=== PATIENT | male | born 1945 | race Caucasian/White ===

== ENCOUNTER 2024-04-16 20:22 | Observation (INO) ==
--- NOTE | 2024-04-16 20:58 | ED.PDOC ---
General ED Provider: Dr. 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 He noticed that fever first today. He took no medication for coming in. Is associate with chills he had some mild nausea earlier that has resolved he otherwise is asymptomatic. He has had no headache, neck pain, sore throat, runny nose, chest pain, shortness of breath, cough, productive sputum, hemoptysis, abdominal pain, vomiting, diarrhea, dysuria, hesitancy or urgency. Patient states he drinks a lot of water and does go to the bathroom frequently he called his doctor who told him to come into the emergency department. Procedure was performed by Dr. Ochoa at [facility] Time Seen by Provider: 04/16/24 20:41 Information Source: Patient Nursing and Triage Documentation Reviewed and Agree: Yes What is Opioid Naive?: *Opioid Naive implies the patient is not already taking opioids or not chronically receiving opioids on a daily basis. *PRN dosing is not "usually" associated with tolerance. *Patients are at higher risk of over-sedation and aspiration. What is Opioid Tolerant?: *Opioid Tolerance implies less than the expected response to an opioid. *Acquired tolerance is defined by the patient taking 60mg of oral morphine daily (or equianalgesic dose of another opioid) for 1 week or more. *Often associated with chronic pain. *May take more than usual dose to achieve desired pain control. Review of Systems Review Of Systems Constitutional: Reports Chills and Fever Ears, Nose, Mouth, Throat: Reports No symptoms; Denies Ear pain, Ear discharge or Throat pain Respiratory: Denies Cough or Shortness of Breath Cardiac: Denies Chest pain or Irregular heart rate GI: Denies Abdominal pain or Difficulty swallowing : Reports Frequency; Denies Burning, Dysuria or Discharge Musculoskeletal: Reports No symptoms; Denies Back pain or Joint pain Skin: Denies Bruising or Rash Neurological: Reports No symptoms [facility] Medical History (Updated 04/17/24 @ 02:47 by TORRI SPENCE RN) Hernia K46.9 - Unspecified abdominal hernia without obstruction or gangrene (ICD- 10) Depression F32.A - Depression, unspecified (ICD-10) Hypertension I10 - Essential (primary) hypertension (ICD-10) Cancer URETER, BLADDER, PROSTATE C80.1 - Malignant (primary) neoplasm, unspecified (ICD-10) Social History (Updated 04/17/24 @ 02:47 by TORRI SPENCE RN) Smoking and tobacco status: Never smoker Surgical History (Updated 04/17/24 @ 02:47 by TORRI SPENCE RN) History of nephrectomy, left Z90.5 - Acquired absence of kidney (ICD-10) Physical Exam Physical Exam Appearance: Reports Well-appearing Eyes: Reports JENNIFER, EOMI and Conjunctiva clear ENT: Reports Ears normal, Nose normal and Oropharynx normal Neck: Supple Respiratory: Reports Airway patent and Breath sounds clear; Denies Crackles, Rhonchi or Wheezes Cardiovascular: Reports RRR, Pulses normal, No rub, No murmur and Irregular rhythm GI/: Reports Soft and Nontender Musculoskeletal: Reports Normal strength and ROM intact Skin: Reports Warm Neurological: Reports Sensation intact and Motor intact Psychiatric: Reports Affect appropriate Interpretation EKG Interpretation EKG Interpretation By: ED Physician Time of EKG #1: 20:58 Rate: Normal Rhythm: Sinus Suther[place]: NL Interpretation: Right bundle branch block Course Course 04/16/24 21:06 04/16/24 21:06 Orders, Labs, Meds: Lab Review 04/16/24 04/16/24 21:06 23:45 WBC 23.79 H RBC 4.66 L Hgb 13.7 L Hct 42.6 MCV 91.4 MCH 29.4 MCHC 32.2 RDW Coeff of Ashley 12.9 Plt Count 180 Immature Gran % (Auto) 0.6 Neut % (Auto) 86.1 H Lymph % (Auto) 3.9 L Clayton % (Auto) 8.8 Eos % (Auto) 0.4 Baso % (Auto) 0.2 Neut # (Auto) 20.5 H Lymph # (Auto) 0.9 Clayton # (Auto) 2.1 H Eos # (Auto) 0.1 Baso # (Auto) 0.1 Immature Gran # (Auto) 0.2 Hypochromasia 1+ Anisocytosis 2+ Microcytosis 1+ Sodium 136.3 Potassium 4.34 Chloride 105.5 Carbon Dioxide 23.9 Anion Gap 11.24 BUN 33.8 H Creatinine 1.50 H Estimated GFR (MDRD) 45.00 BUN/Creatinine Ratio 22.53 Glucose 121.9 H Lactic Acid 1.63 Calcium 9.19 Total Bilirubin 0.54 AST 22.6 ALT 26.6 Alkaline Phosphatase 101.5 Total Protein 7.41 Albumin 4.23 Globulin 3.18 Albumin/Globulin Ratio 1.33 Lipase 96.6 Urine Color Yellow Urine Clarity Slightly Urine pH 7.5 Ur Specific Hart[place] 1.020 Urine Protein 1+ H Urine Glucose (UA) Negative Urine Ketones Negative Urine Blood 3+ H Urine Nitrite Negative Urine Bilirubin Negative Urine Urobilinogen 0.2 Ur Leukocyte Esterase Negative Urine Microscopic RBC 50-100 Ur Squamous Epith Cells Not Reportable Influ A Molecular Assay Negative by naat Influ B Molecular Assay Negative by naat SARS CoV-2 RNA Rapid SHARIFA Negative Orders Category Date Time Status OBSERVATION [PLACE PATIENT OBSERVATION] .TO MEDSURG ADMISSION 04/17/24 00:32 Active (MONITORED BED) EKG-(ED ONLY) Stat CARDIO 04/16/24 20:50 Ordered NPO REMINDER: IMAGING ONCE CARE 04/16/24 20:50 Active TELEMETRY MONITORING TELE CARE 04/16/24 23:28 Completed TELEMETRY MONITORING TELE CARE 04/17/24 00:32 Active VITAL SIGNS Q4HR CARE 04/16/24 23:32 Active VTE PREVENTION .SCD 24 Hours CARE 04/16/24 23:37 Active RENAL DIET DIETARY 04/17/24 Breakfast Ordered BLOOD CULTURE (ED ONLY) Stat LAB 04/16/24 21:51 Received BLOOD CULTURE Stat LAB 04/16/24 21:37 Received CBC W/ AUTO DIFF DAILY@0600 LAB 04/17/24 06:00 Ordered CBC W/ AUTO DIFF DAILY@0600 LAB 04/18/24 06:00 Ordered CBC W/ AUTO DIFF Stat LAB 04/16/24 21:06 Completed CMP [COMPREHENSIVE METABOLIC PANEL] DAILY@0600 LAB 04/17/24 06:00 Ordered CMP [COMPREHENSIVE METABOLIC PANEL] DAILY@0600 LAB 04/18/24 06:00 Ordered CMP [COMPREHENSIVE METABOLIC PANEL] Stat LAB 04/16/24 21:06 Completed COVID [SARS COV-2 RNA RAPID SHARIFA] Stat LAB 04/16/24 23:45 Completed FLU A & B MOLECULAR [FLU A/B MOLECULAR] Stat LAB 04/16/24 23:45 Completed LACTIC ACID Stat LAB 04/16/24 21:06 Completed LIPASE Stat LAB 04/16/24 21:06 Completed MAGNESIUM DAILY@0600 LAB 04/17/24 06:00 Ordered MAGNESIUM DAILY@0600 LAB 04/18/24 06:00 Ordered RBC MORPHOLOGY Stat LAB 04/16/24 21:06 Completed URINALYSIS C & S IF INDICATED Stat LAB 04/16/24 21:06 Completed URINE CULTURE Stat LAB 04/17/24 02:26 Received Acetaminophen [Tylenol] Meds 04/16/24 20:50 Discontinued 1,000 mg PO ONCE ONE Heparin Sodium,Porcine [Heparin] Meds 04/16/24 23:45 Active 5,000 units SUBCUT Q12HR Iodixanol [Visipaque 320 mg/ml 100Ml] Meds 04/16/24 22:21 Discontinued 100 ml IVP ONCE ONE Ondansetron HCl/Pf [Zofran 4 mg/2 ml] Meds 04/16/24 20:50 Discontinued 4 mg IVP ONCE ONE Piperacillin Sodium/Tazobactam [Zosyn 2.25 gm] 2.25 gm Meds 04/17/24 03:00 Active 0.9 % Sodium Chloride [Sodium Chloride 100Ml] 100 ml IV ONCE Piperacillin Sodium/Tazobactam [Zosyn 2.25 gm] 2.25 gm Meds 04/17/24 09:00 Active 0.9 % Sodium Chloride [Sodium Chloride 100Ml] 100 ml IV ONCE Piperacillin Sodium/Tazobactam [Zosyn 4.5 gm] 4.5 gm Meds 04/16/24 21:43 Discontinued 0.9 % Sodium Chloride [Sodium Chloride 100Ml] 100 ml IV ONCE Sodium Chloride 0.9% [Sodium Chloride] 1,000 ml Meds 04/16/24 21:29 Discontinued IV BOLUS Sodium Chloride 0.9% [Sodium Chloride] 1,000 ml Meds 04/16/24 23:45 Active IV Q10H RESUSCITATION STATUS Routine OTHERS 04/16/24 23:[address] ABDOMEN/PELVIS W CONTRAST Stat RADS 04/16/24 20:50 Completed CXR [CHEST, 2 VIEWS PA & LAT] Stat RADS 04/16/24 20:50 Completed Medications Generic Name Dose Route Start Last Admin Trade Name Freq PRN Reason Stop Dose Admin Heparin Sodium (Porcine) 5,000 units 04/16/24 23:45 04/17/24 02:26 Heparin Sodium,Porcine 5,000 Units/Ml Syringe SUBCUT Not Given Q12HR ARUNA Sodium Chloride 1,000 mls @ 100 mls/hr 04/16/24 23:45 04/17/24 02:07 Sodium Chloride IV 100 mls/hr Q10H ARUNA Administration Piperacillin Sod/Tazobactam 100 mls @ 200 mls/hr 04/17/24 03:00 04/17/24 02:04 Sod 2.25 gm/ Sodium Chloride IV 04/17/24 03:29 200 mls/hr ONCE ONE Administration Piperacillin Sod/Tazobactam 100 mls @ 200 mls/hr 04/17/24 09:00 Sod 2.25 gm/ Sodium Chloride IV 04/17/24 09:29 ONCE ONE Discontinued Medications Generic Name Dose Route Start Last Admin Trade Name Freq PRN Reason Stop Dose Admin Acetaminophen 1,000 mg 04/16/24 20:50 04/16/24 21:15 Acetaminophen 500 Mg Tablet PO 04/16/24 20:51 1,000 mg ONCE ONE Administration Sodium Chloride 1,000 mls @ 1,000 mls/hr 04/16/24 21:29 04/16/24 22:44 Sodium Chloride IV 04/16/24 22:28 Infused BOLUS ONE Infusion Piperacillin Sod/Tazobactam 100 mls @ 200 mls/hr 04/16/24 21:43 04/16/24 22:06 Sod 4.5 gm/ Sodium Chloride IV 04/16/24 22:12 200 mls/hr ONCE ONE Administration Iodixanol 100 ml 04/16/24 22:21 04/16/24 22:21 Iodixanol 320 Mg/Ml 100ml IVP 04/16/24 22:22 100 ml ONCE ONE Administration Ondansetron HCl 4 mg 04/16/24 20:50 04/17/24 00:56 Ondansetron Hcl/Pf 4 Mg/2 Ml Sdv IVP 04/16/24 20:51 Not Given ONCE ONE Vital Signs: Temp Pulse Resp BP Pulse Ox 04/16/24 20:28 100.6 F H 106 H 18 193/112 H 95 Discharge Plan Discharge Patient Disposition: PLACED OBSERVATION Discharge Problem: Fever Did you review [place] CHARGE AUTHORIZER for ALL controlled substances?: Not Applicable ED Provider: TANIKA VOGT Condition: Stable Physician Progress Note: 78-year-old male history of nephrectomy, status post prostate surgery that was done transurethrally at an outside hospital presenting to the emergency department fever x 1 day. He is not having any associated symptoms whatsoever. Other than nausea. exam was unremarkable no testicular tenderness, no discharge, no blood at the meatus, abdomen soft nontender. Higher suspicion for a UTI, patient has no clinical signs or symptoms consistent with pneumonia however will get screening chest x-ray, he does not have calf pain or tenderness, no hemoptysis does not seem consistent with DVT or PE nor does it seem consistent with that given the timeframe. Abscess is on the differential we will get CT scan to rule out post surgical infection. Will give antipyretics, reevaluate. Viral illness also on the differential. Other differential considered as well thought to be less likely at this point in time. Patient with significant leukocytosis of 23,000, Zosyn added as well as fluids, creatinine was elevated 1.5, with setting of history of nephrectomy and sepsis did feel antibiotics were prudent and lactic acid added on. There is still no clear source as his urine was negative chest x-ray was negative CT scan did not show anything obvious to cause a fever. Did discuss with [facility] who did not feel patient needed to be transferred. Discussed with hospitalist to admit to our facility for continued monitoring lab draws IV antibiotics and to follow- up cultures.
[2024-04-16] MEDS: ZOFRAN SDV IVP ONE (21:15)
[2024-04-16] MEDS: TYLENOL PO ONE (21:15)
[2024-04-16 21:24] LABS: BASOPHILS # (AUTO) 0.1 K/uL (0-0.2); BASOPHILS % (AUTO) 0.2 % (0.0-3.0); EOSINOPHILS # (AUTO) 0.1 K/ul (0.0-0.7); EOSINOPHILS % (AUTO) 0.4 % (0.0-7.0); HEMATOCRIT 42.6 % (42.0-52.0); HEMOGLOBIN 13.7 g/dl (14.0-18.0); IMMATURE GRANULOCYTE # (AUTO) 0.2 (0.0-1.0); IMMATURE GRANULOCYTE % (AUTO) 0.6 % (0.0-5.0); LYMPHOCYTES # (AUTO) 0.9 K/uL (0.60-3.4); LYMPHOCYTES % (AUTO) 3.9 (10.0-50.0); MEAN CORPUSCULAR HEMOGLOBIN 29.4 pg (27.0-31.0); MEAN CORPUSCULAR HGB CONC 32.2 (31.8-35.4); MEAN CORPUSCULAR VOLUME 91.4 fl (80.0-94.0); MONOCYTES # (AUTO) 2.1 K/uL (0.4-2.0); MONOCYTES % (AUTO) 8.8 (0-10); NEUTROPHILS # (AUTO) 20.5 K/ul (2.0-6.9); NEUTROPHILS % (AUTO) 86.1 % (42.2-75.2); PLATELET COUNT 180 10^3/uL (140-440); RDW COEFFICIENT OF VARIATION 12.9 % (11.6-14.8); RED BLOOD COUNT 4.66 10^6/ul (4.70-6.10); WHITE BLOOD COUNT 23.79 K/ul (4.2-10.2)
[2024-04-16 21:26] LABS: ALANINE AMINOTRANSFERASE 26.6 U/L (0-50); ALBUMIN 4.23 g/dL (3.5-5.0); ALKALINE PHOSPHATASE 101.5 U/L (56-119); ASPARTATE AMINO TRANSFERASE 22.6 U/L (17-59); BILIRUBIN,TOTAL 0.54 mg/dL (0.2-1.3); BLOOD UREA NITROGEN 33.8 mg/dL (9-20); CALCIUM 9.19 mg/dL (8.4-10.2); CARBON DIOXIDE 23.9 mmol/L (22-30.0); CHLORIDE 105.5 mmol/L (98-107); CREATININE 1.5 mg/dL (0.60-1.10); GLUCOSE 121.9 mg/dL (74-106); LIPASE 96.6 U/L (23-300); POTASSIUM 4.34 mmol/L (3.5-5.1); SODIUM 136.3 mmol/L (134.5-145); TOTAL PROTEIN 7.41 g/dL (6.3-8.2)
[2024-04-16 21:34] LABS: ANISOCYTOSIS 2+ (NOT PRESENT); HYPOCHROMASIA 1+ (NOT PRESENT); MICROCYTOSIS 1+ (NOT PRESENT)
[2024-04-16 21:35] LABS: BILIRUBIN,URINE Negative (NEGATIVE); CLARITY,URINE Slightly (CLEAR); COLOR,URINE Yellow (YELLOW); GLUCOSE, URINE (UA) Negative (NEGATIVE); KETONES,URINE Negative (NEGATIVE); LEUKOCYTE ESTERASE ,URINE Negative (NEGATIVE); NITRITE,URINE Negative (NEGATIVE); PH,URINE 7.5 (5-9); PROTEIN,URINE 1+ (NEGATIVE); URINE, BLOOD 3+ (NEGATIVE); UROBILINOGEN,URINE 0.2 (0.2)
[2024-04-16 21:42] LABS: URINE RBC, MICROSCOPIC 50-100 (0-2)
[2024-04-16] MEDS: SODIUM CHLORIDE 1,000 ML IV ONE (21:44)
[2024-04-16] MEDS: ROCEPHIN 1 GM VIAL IVP ONE (21:45)
[2024-04-16] MEDS: ZOSYN 4.5 GM 4.5 GM in SODIUM CHLORIDE 100ML 100 ML IV ONE (22:06)
[2024-04-16] MEDS: VISIPAQUE 320 MG/ML 100ML IVP ONE (22:21)
--- NOTE | 2024-04-16 22:44 | DI ---
EXAM: FRONTAL AND LATERAL VIEWS OF THE CHEST. HISTORY: Leg swelling. COMPARISON: Chest radiograph 06/03/2017. FINDINGS: Atherosclerotic calcifications of the aorta. Normal heart size. No acute consolidation. No pleural effusion or pneumothorax. No acute osseous abnormality. Degenerative changes of the spine and shoulders. IMPRESSION: No acute finding in the chest.
--- NOTE | 2024-04-16 22:59 | CT ---
EXAM: CT OF THE ABDOMEN AND PELVIS WITH CONTRAST TECHNIQUE: CT of the abdomen and pelvis was performed with contrast. Multiplanar reformats were perf ormed. HISTORY: Fever. Recent prostate and bladder surgery. COMPARISON: CT urogram 03/29/2024. FINDINGS: Imaged lower thorax: Calcified granuloma in the left lower lobe. Heavy coronary calcifications. Tra ce pericardial fluid. Liver: Unremarkable. Gallbladder/Bile Ducts: No biliary dilation. Cholelithiasis without acute cholecystitis. Spleen: Unremarkable. Pancreas: Unremarkable. Adrenals: Stable 3.7 cm right adrenal adenoma. Kidneys/Ureters: Status post left nephrectomy. Right kidney contains a few small cysts. No hydroneph rosis. Bowel/mesentery/peritoneum: No bowel obstruction. Normal appendix. No ascites or free air. Retroperitoneum/vessels: No aortic aneurysm. Multifocal atherosclerotic plaques. Pelvis: Small amount of gas in the urinary bladder. Mild thickening of the anterior urinary bladder wall. Fat-containing bilateral inguinal hernias. Prostate is mildly enlarged. Bones/body wall: Multilevel degenerative spondylosis. IMPRESSION: Small amount of gas in the urinary bladder probably related to recent procedure. Mild thickening of the urinary bladder wall anteriorly. Cholelithiasis without acute cholecystitis. Chronic and postsurgical findings as described above, similar to the previous exam. All CT scans are performed using dose optimization techniques as appropriate to the performed exam an d include at least one of the following: Automated exposure control, adjustment of the mA and/or kV according t o size, and the use of iterative reconstruction technique.
[2024-04-17 00:13] LABS: SARS COV-2 RNA RAPID NAAT NEGATIVE (NEGATIVE)
[2024-04-17 00:14] LABS: MOLECULAR FLU A NEGATIVE BY NAAT (NEGATIVE); MOLECULAR FLU B NEGATIVE BY NAAT (NEGATIVE)
[2024-04-17] MEDS: HEPARIN SUBCUT SCH (01:19)
[2024-04-17] MEDS: SODIUM CHLORIDE 1,000 ML IV SCH (01:21)
[2024-04-17 02:03] VITALS: BMI 29.7
[2024-04-17] MEDS: ZOSYN 2.25 GM 2.25 GM in SODIUM CHLORIDE 100ML 100 ML IV ONE ×2 (02:04→11:05)
[2024-04-17] MEDS ORDERED: ZOSYN 3.375 GM 3.375 GM in SODIUM CHLORIDE 100ML 100 ML IV ONE (03:00)
[2024-04-17 05:36] LABS: HEMATOCRIT 39.8 % (42.0-52.0); HEMOGLOBIN 12.6 g/dl (14.0-18.0); MEAN CORPUSCULAR HEMOGLOBIN 29.6 pg (27.0-31.0); MEAN CORPUSCULAR HGB CONC 31.7 (31.8-35.4); MEAN CORPUSCULAR VOLUME 93.6 fl (80.0-94.0); PLATELET COUNT 173 10^3/uL (140-440); RDW COEFFICIENT OF VARIATION 13.1 % (11.6-14.8); RED BLOOD COUNT 4.25 10^6/ul (4.70-6.10); WHITE BLOOD COUNT 19.04 K/ul (4.2-10.2)
[2024-04-17 05:54] LABS: ANISOCYTOSIS OCCASIONAL (NOT PRESENT)
[2024-04-17 05:57] LABS: ALANINE AMINOTRANSFERASE 24.3 U/L (0-50); ALBUMIN 3.55 g/dL (3.5-5.0); ALKALINE PHOSPHATASE 93.1 U/L (56-119); ASPARTATE AMINO TRANSFERASE 18.3 U/L (17-59); BILIRUBIN,TOTAL 0.58 mg/dL (0.2-1.3); CALCIUM 8.54 mg/dL (8.4-10.2); CARBON DIOXIDE 24.5 mmol/L (22-30.0); CHLORIDE 107.4 mmol/L (98-107); CREATININE 1.57 mg/dL (0.60-1.10); GLUCOSE 127.4 mg/dL (74-106); MAGNESIUM 2.47 mg/dL (1.6-2.3); POTASSIUM 4.01 mmol/L (3.5-5.1); SODIUM 139.2 mmol/L (134.5-145); TOTAL PROTEIN 6.41 g/dL (6.3-8.2)
[2024-04-17] MEDS ORDERED: NON-FORMULARY MEDICATION (Magnesium Oxide 500 mg capsule) PO SCH (10:45)
[2024-04-17] MEDS: AMLODIPINE BENAZEPRIL PO SCH (11:04)
[2024-04-17] MEDS: CELEXA PO SCH (11:10)
[2024-04-17] MEDS: NORVASC PO SCH (11:10)
[2024-04-17] MEDS: FLOMAX PO SCH (11:10)
[2024-04-17] MEDS: DESYREL PO PRN (11:10)
[2024-04-17] MEDS: ZOSYN 3.375 GM 3.375 GM in SODIUM CHLORIDE 100ML 100 ML IV SCH (11:10)
[2024-04-17] MEDS: LOTENSIN PO SCH (11:11)
--- NOTE | 2024-04-17 11:21 | PCM ---
Date of Service Date Seen by Provider: 04/17/24 Time Seen by Provider: 09:15 Admit Day/Time Admission Date: 04/17/24 Admission Time: 00:32 Reason for Admission Chief Complaint: FEVER AFTER OPERATION, POSS INFECTION Hospital Provider Hospital Provider[facility]INA [facility], [facility] History of Present Illness History of Present Illness: Patient is a 71 y/o male with a PMH of prostate, ureter and bladder cancer as well as left nephrectomy, who presented to the emergency department with complaints of fever and chills. Reports that had cystoscopy on 04/13/[address] Ochoa in [place] due to cancer of the bladder. States that was told to seek medical attention if developed fever. No abdominal pain, dysuria, difficulty urinating, hematuria, or nausea/vomiting. Denies headache, neck pain, cough, chest pain, shortness of breath or any other concerns. On evaluation in ER patient was found to have wbc of 23, urine and chest x-ray are unremarkable. CT abdominal and pelvis showed post surgical changes. Blood cultures were obtained. Per records ER provider spoke with [place] and was advised can keep patient here at [place]. Patient was treated with IV fluids and Zosyn. Patient admitted for observation and further management. Case Discussed With Case Discussed With: Patient's case was discussed with the ER Physicians, Dr. Sharma [facility] Medical History Hernia K46.9 - Unspecified abdominal hernia without obstruction or gangrene (ICD- 10) Depression F32.A - Depression, unspecified (ICD-10) Hypertension I10 - Essential (primary) hypertension (ICD-10) Cancer URETER, BLADDER, PROSTATE C80.1 - Malignant (primary) neoplasm, unspecified (ICD-10) Surgical History (Updated 04/17/24 @ 02:47 by TORRI SPENCE RN) History of nephrectomy, left Z90.5 - Acquired absence of kidney (ICD-10) Social History (Updated 04/17/24 @ 02:47 by TORRI SPENCE, SAM) Smoking and tobacco status: Never smoker Allergies Allergies Allergy/AdvReac Type Severity Reaction Status Date / Time No Known Allergies Allergy Unverified 04/16/24 20:37 Current Medications Home Medications Saccharomyces boulardii 250 mg capsule (Daily Probiotic (S. boulardii)) 250 mg PO BID 04/16/24 [History Confirmed 04/17/24 Last Taken 04/16/24] amlodipine 2.5 mg-benazepril 10 mg capsule 1 cap PO DAILY 04/16/24 [History Confirmed 04/17/24 Last Taken 04/16/24] cholecalciferol (vitamin D3) 75 mcg (3,000 unit) tablet 3,000 unit PO QDAY 04/16/24 [History Confirmed 04/16/24 Last Taken Unknown] citalopram 40 mg tablet 40 mg PO DAILY 04/16/24 [History Confirmed 04/17/24 Last Taken 04/16/24] magnesium oxide 500 mg capsule 500 mg PO DAILY 04/16/24 [History Confirmed 04/17/24 Last Taken 04/16/24] tamsulosin 0.4 mg capsule (Flomax) 0.4 mg PO BID 04/16/24 [History Confirmed 04/17/24 Last Taken 04/16/24] trazodone 100 mg tablet 50 mg PO BEDTIME PRN sleep 04/16/24 [History Confirmed 04/17/24 Last Taken 04/16/24] zinc gluconate 100 mg tablet 100 mg PO ONCE 04/16/24 [History Confirmed 04/16/24 Last Taken Unknown] vit C 250 mg-vit E 200 unit-zinc ox 12.5 wa-pnfdch-udqjnd-zeax capsule 1 cap PO DAILY 04/17/24 [History Confirmed 04/17/24 Last Taken 04/16/24] Home Amlodipine Besylate (Amlodipine Besylate 5 Mg Tablet) 2.5 mg PO DAILY [facility] Last Admin: 04/17/24 11:10 Dose: 2.5 mg Benazepril HCl (Benazepril Hcl 10 Mg Tablet) 10 mg PO DAILY [facility] Last Admin: 04/17/24 11:11 Dose: 10 mg Cholecalciferol (Cholecalciferol (Vitamin D3) 1,000 Unit (25 Mcg) Tablet) 3,000 unit PO DAILY [facility] Citalopram Hydrobromide (Citalopram Hydrobromide 20 Mg Tablet) 40 mg PO DAILY [facility] Last Admin: 04/17/24 11:10 Dose: 40 mg Heparin Sodium (Porcine) (Heparin Sodium,Porcine 5,000 Units/Ml Syringe) 5,000 units SUBCUT Q12HR [facility] Last Admin: 04/17/24 11:48 Dose: Not Given Sodium Chloride (Sodium Chloride) 1,000 mls @ 100 mls/hr IV Q10H [facility] Last Admin: 04/17/24 02:07 Dose: 100 mls/hr Piperacillin Sod/Tazobactam (Sod 3.375 gm/ Sodium Chloride) 100 mls @ 200 mls/hr IV Q6HR [facility] Stop: 04/20/24 11:59 Last Admin: 04/17/24 11:10 Dose: 200 mls/hr Magnesium Oxide (Magnesium Oxide 400 Mg Tablet) 400 mg PO DAILY [facility] Saccharomyces Boulardii (Saccharomyces Boulardii 250 Mg Capsule) 250 mg PO BID [facility] Tamsulosin HCl (Tamsulosin Hcl 0.4 Mg Cap.Er.24h) 0.4 mg PO BID [facility] Last Admin: 04/17/24 11:10 Dose: 0.4 mg Trazodone HCl (Trazodone Hcl 50 Mg Tablet) 50 mg PO BEDTIME PRN PRN Reason: sleep Zinc Sulfate (Zinc Sulfate 220 Mg Capsule) 220 mg PO DAILY [facility] Discontinued Medications Acetaminophen (Acetaminophen 500 Mg Tablet) 1,000 mg PO ONCE ONE Stop: 04/16/24 20:51 Last Admin: 04/16/24 21:15 Dose: 1,000 mg Sodium Chloride (Sodium Chloride) 1,000 mls @ 1,000 mls/hr IV BOLUS ONE Stop: 04/16/24 22:28 Last Infusion: 04/16/24 22:44 Dose: Infused Piperacillin Sod/Tazobactam (Sod 4.5 gm/ Sodium Chloride) 100 mls @ 200 mls/hr IV ONCE ONE Stop: 04/16/24 22:12 Last Admin: 04/16/24 22:06 Dose: 200 mls/hr Piperacillin Sod/Tazobactam (Sod 2.25 gm/ Sodium Chloride) 100 mls @ 200 mls/hr IV ONCE ONE Stop: 04/17/24 03:29 Last Admin: 04/17/24 02:04 Dose: 200 mls/hr Piperacillin Sod/Tazobactam (Sod 2.25 gm/ Sodium Chloride) 100 mls @ 200 mls/hr IV ONCE ONE Stop: 04/17/24 09:29 Last Admin: 04/17/24 11:05 Dose: Not Given Iodixanol (Iodixanol 320 Mg/Ml 100ml) 100 ml IVP ONCE ONE Stop: 04/16/24 22:22 Last Admin: 04/16/24 22:21 Dose: 100 ml Non-Formulary Medication (Amlodipine-Benazepril) 1 cap PO DAILY [facility] Last Admin: 04/17/24 11:04 Dose: Not Given Ondansetron HCl (Ondansetron Hcl/Pf 4 Mg/2 Ml Sdv) 4 mg IVP ONCE ONE Stop: 04/16/24 20:51 Last Admin: 04/17/24 00:56 Dose: Not Given Zinc Sulfate (Zinc Sulfate 220 Mg Capsule) 440 mg PO DAILY [facility] Opioid Naive vs. Tolerant What is Opioid Naive?: *Opioid Naive implies the patient is not already taking opioids or not chronically receiving opioids on a daily basis. *PRN dosing is not "usually" associated with tolerance. *Patients are at higher risk of over-sedation and aspiration. What is Opioid Tolerant?: *Opioid Tolerance implies less than the expected response to an opioid. *Acquired tolerance is defined by the patient taking 60mg of oral morphine daily (or equianalgesic dose of another opioid) for 1 week or more. *Often associated with chronic pain. *May take more than usual dose to achieve desired pain control. Review of Systems Constitutional: Reports Chills Head: Reports Normocephalic and Atraumatic Eyes: Denies Vision Changes Ears: Reports No symptoms Nose: Reports No symptoms Mouth: Reports No symptoms Throat: Reports No symptoms Cardiovascular: Denies Chest pain or Palpitations Respiratory: Denies Cough or Shortness of air Gastrointestinal: Denies Nausea, Vomiting, Diarrhea or Abdominal pain Genitourinary: Denies Dysuria, Hematuria, Incontinent Bladder, Flank Pain, Penile Discharge, Testicular Pain or Testicular Swelling Musculoskeletal: Denies Neck Pain or Back Pain Dermatologic: Denies Skin Changes Endocrine: Denies No symptoms Hematology: Denies No symptoms Immunology: Denies Frequent infections Neurological: Denies No symptoms Psychiatric: Denies Depression or Suicidal Physical examination Most Recent Vital Signs: Most Recent Vital Signs Temperature 97.1 F L 04/17/24 05:21 Temperature Source Temporal Artery Scan 04/17/24 05:21 Temperature Source Infrared 04/17/24 01:20 Pulse Rate 65 04/17/24 05:21 Respiratory Rate 18 04/17/24 05:21 Blood Pressure 149/76 H 04/17/24 05:21 Blood Pressure Mean 100 04/17/24 05:21 Blood Pressure Left Arm 137/71 04/17/24 01:47 Blood Pressure Location Left Arm 04/17/24 05:21 Blood Pressure Position Supine 04/17/24 05:21 O2 Sat by Pulse Oximetry 98 04/17/24 05:21 Oxygen Delivery Method Room Air 04/17/24 10:00 Height 5 ft 10 in 04/17/24 01:47 Weight 93.9 kg 04/17/24 01:47 Telemetry Type Remote Telemetry 04/17/24 01:54 Telemetry Monitoring Started 04/17/24 01:54 Telemetry Heart Rate 76 04/17/24 01:54 EKG KS Interval 0.20 04/17/24 01:54 EKG QRS Interval 0.09 04/17/24 01:54 Telemetry Strip Reading SINUS RHYTHM 04/17/24 01:54 Appearance: Positive Well-appearing, Well-nourished, No Apparent Distress and Alert and Oriented x3 Skin: Positive Warm and Good Turgor HEENT: Positive Normocephalic and Atraumatic Neck: Positive Supple and Midline Trachea Chest/Lungs: Positive Symmetrical With Equal Breath Sounds and Clear to Au scultation Bilaterally Heart: Positive RRR GI/: Positive Soft, Nontender, Bowel Sounds Normal and No Distention; Negative Tender or Mass Extremities: Positive Intact Peripheral Pulses; Negative Cyanosis or Edema Neurological: Positive Sensation Intact, Motor intact, Cranial Nerves Intact, Alert, Oriented and Muscle Strength 5/5 in Upper and Lower Extremities Bilaterally; Negative Focal Deficit Psychiatric: Positive Oriented x4, Appropriate Mood and Appropriate Affect Labs This Visit Labs This Visit: Labs This Visit 04/16/24 04/16/24 04/17/24 21:06 23:45 05:15 WBC 23.79 H 19.04 H RBC 4.66 L 4.25 L Hgb 13.7 L 12.6 L Hct 42.6 39.8 L MCV 91.4 93.6 MCH 29.4 29.6 MCHC 32.2 31.7 L RDW Coeff of Ashley 12.9 13.1 Plt Count 180 173 Immature Gran % (Auto) 0.6 Neut % (Auto) 86.1 H Lymph % (Auto) 3.9 L [place] % (Auto) 8.8 Eos % (Auto) 0.4 Baso % (Auto) 0.2 Neut # (Auto) 20.5 H Lymph # (Auto) 0.9 [place] # (Auto) 2.1 H Eos # (Auto) 0.1 Baso # (Auto) 0.1 Immature Gran # (Auto) 0.2 Neutrophils % (Manual) 76.0 H Band Neutrophils % 1.0 Lymphocytes % (Manual) 10.0 Monocytes % (Manual) 13.0 H Hypochromasia 1+ Anisocytosis 2+ Occasional Microcytosis 1+ Sodium 136.3 139.2 Potassium 4.34 4.01 Chloride 105.5 107.4 H Carbon Dioxide 23.9 24.5 Anion Gap 11.24 11.31 BUN 33.8 H 28.0 H Creatinine 1.50 H 1.57 H Estimated GFR (MDRD) 45.00 43.00 BUN/Creatinine Ratio 22.53 17.83 Glucose 121.9 H 127.4 H Lactic Acid 1.63 Calcium 9.19 8.54 Magnesium 2.47 H Total Bilirubin 0.54 0.58 AST 22.6 18.3 ALT 26.6 24.3 Alkaline Phosphatase 101.5 93.1 Total Protein 7.41 6.41 Albumin 4.23 3.55 Globulin 3.18 2.86 Albumin/Globulin Ratio 1.33 1.24 Lipase 96.6 Urine Color Yellow Urine Clarity Slightly Urine pH 7.[address] 1.020 Urine Protein 1+ H Urine Glucose (UA) Negative Urine Ketones Negative Urine Blood 3+ H Urine Nitrite Negative Urine Bilirubin Negative Urine Urobilinogen 0.2 Ur Leukocyte Esterase Negative Urine Microscopic RBC 50-100 Ur Squamous Epith Cells Not Reportable Influ A Molecular Assay Negative by naat Influ B Molecular Assay Negative by naat SARS CoV-2 RNA Rapid SHARIFA Negative Microbiology This Visit 04/17/24 02:26 Urine,Clean Catch Urine Culture - Preliminary Review Statement Review Statement: I have independently reviewed and interpreted the labs/EKGs/imaging that were ordered by the ER provider. I have reviewed all outside records that are available currently in our EMR including imaging/notes/labs from previous visits. Assessment (1) Fever: Status: Acute Code(s): R50.9 - Fever, unspecified SNOMED Code(s): 347609874 (2) Sepsis: Status: Acute Code(s): A41.9 - Sepsis, unspecified organism SNOMED Code(s): 46991905 (3) Elevated serum creatinine: Status: Acute Code(s): R79.89 - Other specified abnormal findings of blood chemistry SNOMED Code(s): 362274396 (4) Cancer: Code(s): C80.1 - Malignant (primary) neoplasm, unspecified SNOMED Code(s): 043450037 (5) Hypertension: Code(s): I10 - Essential (primary) hypertension SNOMED Code(s): 38227887 Plan Plan: 1. Sepsis - unspecified, rule out, , temp 100.6, HR 106 on admission - no obvious source, cystoscopy due to bladder cancer on 04/13, urine and CXR negative, CT abd/pelvis unremarkable - continue IV Zosyn, follow blood and urine cx - continue IVF - telemetry, monitor - repeat labs in am 2. elevated creatnine - unknown baseline with history of left nephrectomy - continue IV hydration, monitor I/O and renal function. - avoid nephrotoxin and hypotension when possible 3. history of bladder, ureter and prostate cancer - follows with Dr. Ochoa in [facility], cystoscopy on 04/13 due to bladder cancer - not currently on chemo per 4. Hypertension, chronic - resume home norvasc - monitor 5. Depression - - resume home citalopram DVT Prophylaxis: Heparin Time Spent: Greater than 80 minutes spent with patient, 50% of the time spent with this patient was devoted to counseling and coordination of care. Advanced Care Planning: [5] minutes spent discussing advance care planning. Smoking Cessation: 3-10 minutes spent discussing smoking cessation. Disposition: discharge home when medically stable Admit to: Med Surg, observation Discussed Plan of Care with Dr. Taylor Medications Medication Orders: Medications Ordered Category Date Time Status Amlodipine Besylate [Norvasc] Meds 04/17/24 11:00 Active 2.5 mg PO DAILY Benazepril HCl [Lotensin] Meds 04/17/24 11:00 Active 10 mg PO DAILY Cholecalciferol (Vitamin D3) [Vitamin D] Meds 04/18/24 09:00 Active 3,000 unit PO DAILY Citalopram Hydrobromide [Celexa] Meds 04/17/24 11:00 Active 40 mg PO DAILY Heparin Sodium,Porcine [Heparin] Meds 04/16/24 23:45 Active 5,000 units SUBCUT Q12HR Magnesium Oxide [Mag-Ox] Meds 04/18/24 09:00 Active 400 mg PO DAILY Piperacillin Sodium/Tazobactam [Zosyn 3.375 gm] 3.375 Meds 04/17/24 12:00 Active gm 0.9 % Sodium Chloride [Sodium Chloride 100Ml] 100 ml IV Q6HR Saccharomyces Boulardii [Florastor] Meds 04/17/24 21:00 Active 250 mg PO BID Sodium Chloride 0.9% [Sodium Chloride] 1,000 ml Meds 04/16/24 23:45 Active IV Q10H Tamsulosin HCl [Flomax] Meds 04/17/24 11:00 Active 0.4 mg PO BID Trazodone HCl [Desyrel] Meds 04/17/24 10:39 Active 50 mg PO BEDTIME PRN zinc gluconate Meds 04/17/24 10:45 Ordered 100 mg PO ONCE
[2024-04-17] MEDS ORDERED: ZINC-220 PO SCH (12:00)
[2024-04-17] MEDS: FLORASTOR PO SCH (20:06)
[2024-04-17] MEDS: NORVASC PO ONE (21:03)
[2024-04-18 05:18] LABS: BASOPHILS % (AUTO) 0.2 % (0.0-3.0); EOSINOPHILS # (AUTO) 0.2 K/ul (0.0-0.7); EOSINOPHILS % (AUTO) 1.3 % (0.0-7.0); HEMOGLOBIN 13.3 g/dl (14.0-18.0); IMMATURE GRANULOCYTE # (AUTO) 0.1 (0.0-1.0); IMMATURE GRANULOCYTE % (AUTO) 0.5 % (0.0-5.0); LYMPHOCYTES # (AUTO) 1.1 K/uL (0.60-3.4); MEAN CORPUSCULAR HEMOGLOBIN 29.6 pg (27.0-31.0); MEAN CORPUSCULAR HGB CONC 31.7 (31.8-35.4); MEAN CORPUSCULAR VOLUME 93.5 fl (80.0-94.0); MONOCYTES # (AUTO) 1.4 K/uL (0.4-2.0); MONOCYTES % (AUTO) 10.1 (0-10); NEUTROPHILS # (AUTO) 11.4 K/ul (2.0-6.9); NEUTROPHILS % (AUTO) 79.9 % (42.2-75.2); PLATELET COUNT 161 10^3/uL (140-440); RDW COEFFICIENT OF VARIATION 13.2 % (11.6-14.8); RED BLOOD COUNT 4.49 10^6/ul (4.70-6.10); WHITE BLOOD COUNT 14.21 K/ul (4.2-10.2)
[2024-04-18 05:39] LABS: ALANINE AMINOTRANSFERASE 23.4 U/L (0-50); ALBUMIN 3.67 g/dL (3.5-5.0); ALKALINE PHOSPHATASE 94.3 U/L (56-119); BILIRUBIN,TOTAL 0.64 mg/dL (0.2-1.3); CALCIUM 8.87 mg/dL (8.4-10.2); CARBON DIOXIDE 24.8 mmol/L (22-30.0); CHLORIDE 108.2 mmol/L (98-107); CREATININE 1.49 mg/dL (0.60-1.10); GLUCOSE 125.6 mg/dL (74-106); MAGNESIUM 2.19 mg/dL (1.6-2.3); POTASSIUM 4.17 mmol/L (3.5-5.1); SODIUM 138.5 mmol/L (134.5-145); TOTAL PROTEIN 6.71 g/dL (6.3-8.2)
[2024-04-18] MEDS: VITAMIN D PO SCH (08:22)
[2024-04-18] MEDS: MAG-OX PO SCH (08:23)
[2024-04-18] MEDS: ZINC-220 PO SCH (08:23)
[2024-04-18 09:38] VITALS: BP 141/77; PULSE 83; RESP 17; TEMP 97.2
--- NOTE | 2024-04-18 10:37 | DCSUM ---
Admission Date Admission Date: 04/17/24 Discharge Date Discharge Date: 04/18/24 Admission Diagnosis Admission Diagnosis: 1. Sepsis Discharge Diagnosis Discharge Diagnosis: 1. Sepsis in setting of recent bladder procedure- ruled out 2. CKD 3. History of bladder, ureter and prostate cancer 4. Hypertension, chronic 5. Depression Hospital Provider Hospital Provider[facility] Hao Shields [facility]C [facility] Summary of History and Physical Summary of History and Physical: Patient is a 71 y/o male with a PMH of prostate, ureter and bladder cancer as well as left nephrectomy, who presented to the emergency department with complaints of fever and chills. Reports that had cystoscopy on 04/13/[address] Ochoa in [place] due to cancer of the bladder. States that was told to seek medical attention if developed fever. No abdominal pain, dysuria, difficulty urinating, hematuria, or nausea/vomiting. Denies headache, neck pain, cough, chest pain, shortness of breath or any other concerns. On evaluation in ER patient was found to have wbc of 23, urine and chest x-ray are unremarkable. CT abdominal and pelvis showed post surgical changes. Blood cultures were obtained. Per records ER provider spoke with [place] and was advised can keep patient here at [place]. Patient was treated with IV fluids and Zosyn. Patient admitted for observation and further management. Hospital Course Subjective: Patient was treated with zosyn. No fevers while admitted. WBC count improved. CXR and CT a/p negative for acute infection. Urine culture and blood cultures negative. Patient is feeling well. Will discharge on augmentin given his improvement on zosyn and being immunocompromised. Encouraged calling his urologist tomorrow morning for follow up. Follow up with PCP as well. Patient and daughter in agreement with plan of care. Appearance: Pleasant, No Apparent Distress and Alert HEENT: MMM CVS: No Murmur Abdomen: Soft, Non-Tender and No Distention Respiratory: No Dyspnea Extremities: No Edema Vital Signs: Most Recent Vital Signs Temperature 97.2 F L 04/18/24 09:34 Temperature Source Tympanic 04/18/24 09:34 Temperature Source Infrared 04/17/24 01:20 Pulse Rate 83 04/18/24 09:34 Respiratory Rate 17 04/18/24 09:34 Blood Pressure 141/77 H 04/18/24 09:34 Blood Pressure Mean 98 12/08/24 09:34 Blood Pressure Left Arm 137/71 04/17/24 01:47 Blood Pressure Location Left Arm 04/18/24 09:34 Blood Pressure Position Sitting 04/18/24 09:34 O2 Sat by Pulse Oximetry 96 04/18/24 09:34 Oxygen Delivery Method Room Air 04/18/24 10:00 Height 5 ft 10 in 04/17/24 01:47 Weight 93.9 kg 04/17/24 01:47 Telemetry Type Remote Telemetry 04/18/24 07:00 Telemetry Monitoring Continues 04/18/24 07:00 Telemetry Heart Rate 60 04/18/24 07:00 EKG SC Interval 0.25 H 04/18/24 07:00 EKG QRS Interval 0.07 04/18/24 07:00 Telemetry Strip Reading sr w/ 1st degree avb 04/18/24 07:00 Imaging: EXAM: FRONTAL AND LATERAL VIEWS OF THE CHEST. HISTORY: Leg swelling. COMPARISON: Chest radiograph 06/03/2017. FINDINGS: Atherosclerotic calcifications of the aorta. Normal heart size. No acute consolidation. No pleural effusion or pneumothorax. No acute osseous abnormality. Degenerative changes of the spine and shoulders. IMPRESSION: No acute finding in the chest. EXAM: CT OF THE ABDOMEN AND PELVIS WITH CONTRAST TECHNIQUE: CT of the abdomen and pelvis was performed with contrast. Multiplanar reformats were performed. HISTORY: Fever. Recent prostate and bladder surgery. COMPARISON: CT urogram 03/29/2024. FINDINGS: Imaged lower thorax: Calcified granuloma in the left lower lobe. Heavy coronary calcifications. Trace pericardial fluid. Liver: Unremarkable. Gallbladder/Bile Ducts: No biliary dilation. Cholelithiasis without acute cholecystitis. Spleen: Unremarkable. Pancreas: Unremarkable. Adrenals: Stable 3.7 cm right adrenal adenoma. Kidneys/Ureters: Status post left nephrectomy. Right kidney contains a few small cysts. No hydronephrosis. Bowel/mesentery/peritoneum: No bowel obstruction. Normal appendix. No ascites or free air. Retroperitoneum/vessels: No aortic aneurysm. Multifocal atherosclerotic plaques. Pelvis: Small amount of gas in the urinary bladder. Mild thickening of the anterior urinary bladder wall. Fat-containing bilateral inguinal hernias. Prostate is mildly enlarged. Bones/body wall: Multilevel degenerative spondylosis. IMPRESSION: Small amount of gas in the urinary bladder probably related to recent procedure. Mild thickening of the urinary bladder wall anteriorly. Cholelithiasis without acute cholecystitis. Chronic and postsurgical findings as described above, similar to the previous exam. Lab Results Last 24 Hours: 04/18/24 04:50 WBC 14.21 H RBC 4.49 L Hgb 13.3 L Hct 42.0 MCV 93.5 MCH 29.6 MCHC 31.7 L RDW Coeff of [place] 13.2 Plt Count 161 Immature Gran % (Auto) 0.5 Neut % (Auto) 79.9 H Lymph % (Auto) 8.0 L [place] % (Auto) 10.1 H Eos % (Auto) 1.3 Baso % (Auto) 0.2 Neut # (Auto) 11.4 H Lymph # (Auto) 1.1 [place] # (Auto) 1.4 Eos # (Auto) 0.2 Baso # (Auto) 0.0 Immature Gran # (Auto) 0.1 Sodium 138.5 Potassium 4.17 Chloride 108.2 H Carbon Dioxide 24.8 Anion Gap 9.67 BUN 18.0 Creatinine 1.49 H Estimated GFR (MDRD) 46.00 BUN/Creatinine Ratio 12.08 Glucose 125.6 H Calcium 8.87 Magnesium 2.19 Total Bilirubin 0.64 AST 20.0 ALT 23.4 Alkaline Phosphatase 94.3 Total Protein 6.71 Albumin 3.67 Globulin 3.04 Albumin/Globulin Ratio 1.20 Discharge Instructions Discharge Planning: Discharge Planning > [address] Nish Taylor. Discharge Medications: Medications at Discharge (Home Meds & RX) Discharge Plan Discharge Discharge Orders: Discharge Patient (ONCE); Ordered 04/18/24 Ordered By: HAO SHIELDS Activity Restrictions/Additional Instructions: DISCHARGE TO HOME FOLLOW UP WITH PCP AND UROLOGY DX: FEVER [facility]Y: [facility] PRESCRIBED RETURN WITH WORSENING SYMPTOMS Instructions: Fever in Adults (GEN) Care Plan Goals: Problem: Febrile Illness Goal: Maintain temperature Within Normal Limits Instructions: Monitor temperature as needed Monitor for adverse effects Medicate as ordered and document effect Patient Disposition: HOME SELF-CARE Prescriptions: New amoxicillin-pot clavulanate 875-125 mg tablet 1 tab PO BID 7 Days Qty: 14 0RF Continued cholecalciferol (vitamin D3) 75 mcg (3,000 unit) tablet 3,000 unit PO QDAY magnesium oxide 500 mg capsule 500 mg PO DAILY Saccharomyces boulardii [Daily Probiotic (S. boulardii)] 250 mg capsule 250 mg PO BID zinc gluconate 100 mg tablet 100 mg PO ONCE citalopram 40 mg tablet 40 mg PO DAILY tamsulosin [Flomax] 0.4 mg capsule 0.4 mg PO BID trazodone 100 mg tablet 50 mg PO BEDTIME PRN (Reason: sleep) amlodipine-benazepril 2.5-10 mg capsule 1 cap PO DAILY vit C-E-zinc kp-xosw-odn-zeax 250 mg-200 unit -12.5 mg-1 mg capsule 1 cap PO DAILY Did you review [place] [employer] OF PEDIATRIC UROLOGY for ALL controlled substances?: Not Applicable Discussed opioids are addictive and Narcan is available by prescription or from pharmacy.: No Condition: Stable
== END 2024-04-18 11:17 | disposition home or self-care (01) ==
LOC: ED 20:22 → MEDSURG B 20:22
PROVIDERS: ADMIT Hospitalist; ATTEND Nurse Practitioner Family
DX: I10 Essential (primary) hypertension; Z20.822 Contact with and (suspected) exposure to COVID-19; Z51.81 Encounter for therapeutic drug level monitoring; Z98.890 Other specified postprocedural states; C80.1 Malignant (primary) neoplasm, unspecified; F32.A Depression, unspecified; A41.9 Sepsis, unspecified organism; N18.9 Chronic kidney disease, unspecified; D72.829 Elevated white blood cell count, unspecified; C67.9 Malignant neoplasm of bladder, unspecified; Z79.899 Other long term (current) drug therapy; K80.20 Calculus of gallbladder without cholecystitis without obstruction; R79.89 Other specified abnormal findings of blood chemistry; Z90.5 Acquired absence of kidney